=== PATIENT | male | born 1990 | race Caucasian/White ===

== ENCOUNTER 2024-09-01 09:53 | Emergency (ER) | payer BC ==
[~2024-09-01] VITALS: Ht 170.2 cm; Wt 103.4 kg
[~2024-09-01 09:53] MED LIST: HYDACE5 PO; IBUP800 PO
[2024-09-01] MEDS ORDERED: Ipratropium/Albuterol SulF 2.5-0.5MG/3 ML Amp INH ONE (10:30)
[2024-09-01 11:22] LABS: Influenza A, PCR NEGATIVE (NEGATIVE); Influenza B, PCR NEGATIVE (NEGATIVE); Resp Syncytial Virus, PCR NEGATIVE (NEGATIVE); SARS-Cov-2 (COVID-19) PCR, MMC NEGATIVE (NEGATIVE)
[2024-09-01] MEDS ORDERED: Azithromycin 250 MG Tab PO ONE (11:45)
[2024-09-01] MEDS ORDERED: AZIT250 PO (11:48)
[2024-09-01] MEDS ORDERED: ALBU90OI INH (11:48)
== END 2024-09-01 12:14 | disposition home or self-care (01) ==
LOC: ER 09:53
PROVIDERS: Emergency Medicine
DX: J18.9 Pneumonia, unspecified organism (principal)
CPT/HCPCS: 0241U; 71045; 94640; 94664; 99284-25; A9270